=== PATIENT | male | born 1970 | race Caucasian/White ===

== ENCOUNTER 2019-09-29 06:38 | Emergency (ER) | payer BC, SELFPAY ==
[2019-09-29 06:41] VITALS: BP 129/75; PULSE 81; RESP 16; TEMP 36.3; O2SAT 98
--- NOTE | 2019-09-29 07:07 | ED.HA ---
HPI - Headache General Chief Complaint: Headache Stated Complaint: head painful to touch Time Seen by Provider: 09/29/19 06:54 Source: patient Mode of arrival: ambulatory Limitations: no limitations History of Present Illness HPI Narrative: 49 yo male who presents with c/o right sided head pain starting yesterday. Patient he noticed tenderness to palpation to right side of his scalp . He denies any trauma. He sates his pain has gradually worsened and it was worse when he was trying to lay on his right side. He is also developing nausea. He denies visual changes, focal weakness, numbness or tingling. He has taken tylenol for pain without relief. He denies fever or chills. MD elicited complaint: headache Onset (ago): day(s) Location: right and parietal Exacerbating factors: other (palpation) Relieving factors: nothing Associated symptoms: nausea Related Data Home Medications Medication Instructions Recorded Confirmed No Home Medications 06/02/19 06/02/19 Allergies Allergy/AdvReac Type Severity Reaction Status Date / Time Penicillins Allergy Unknown Hives Verified 06/02/19 13:40 Review of Systems Review of Systems: All systems reviewed & are unremarkable except as noted in HPI and below Constitutional: Constitutional: Denies chills, Denies fever(s) and Denies weakness Eyes: Eyes: Denies change in vision and Denies photophobia ENT: Denies dysphagia, Denies dizziness and Denies sore throat Gastrointestinal: Gastrointestinal: Denies abdominal pain, Reports nausea and Denies vomiting Neurologic: Denies confusion, Denies vertigo, Denies dizziness, Denies syncope, Denies focal weakness, Denies numbness and Denies weakness [facility] Past Medical History Medical History (Updated 09/29/19 @ 08:28 by Loni Murray MD) Plantar fasciitis Social History Social History (Updated 09/29/19 @ 07:12 by Loni Murray MD) Smoking status: Former smoker Tobacco type: cigarettes Exam Const: General: alert Orientation/consciousness: patient oriented x3 HENMT: Head: No palpable skull fracture present, atraumatic and scalp tenderness (right parietal, no lesions noted) Ears: external ears normal Mouth: Yes Normal oral and palatal mucosa present and Yes lip normal Eyes: Conjunctivae: conjunctivae normal Pupils: Equal, round and reactive pupils present Neck: Neck: normal visual inspection Chest: Chest palpation & inspection: normal inspection of the chest Resp: Effort & Inspection: normal respiratory effort Auscultation: clear to auscultation bilaterally Skin: General skin exam: normal color Rashes: no rashes Neuro: General: patient oriented x3 and moves all extremities Course Reevaluation(s) Reevaluation #1: Patient has not nausea and his pain has improved. I discussed with patient to watch for rash for shingles. I also discussed to follow up with PCP. I Do not believe Imaging is needed at this time. Date: 09/29/19 Time: 08:25 Vital Signs Vital signs: Vital Signs Temperature 97.4 F L 09/29/19 06:41 Pulse Rate 81 09/29/19 06:41 Respiratory Rate 16 09/29/19 06:41 Blood Pressure 129/75 09/29/19 06:41 Pulse Oximetry 98 09/29/19 06:41 Temperature 97.4 F L 09/29/19 06:41 Pulse Rate 81 09/29/19 06:41 Respiratory Rate 16 09/29/19 06:41 Blood Pressure 129/75 09/29/19 06:41 Pulse Oximetry 98 09/29/19 06:41 Discharge Plan Discharge Clinical Impression: Scalp pain Patient Disposition: Home, Self-Care Condition: Stable Instructions: Antibiotic Form, Acute Headache (ED) Additional Instructions: Today you were evaluated for pain in your scalp. This is likely due to inflammation to your scalp or nerve. Take NSAIDs such as aleve or ibuprofen for your pain. Follow up with your primary care physician. Also watch for rash developed as shingles can cause pain before you see the rash. Prescriptions: No Action No Home Medications
[2019-09-29] MEDS: ONDANSETRON HCL ODT 4 MG TABLET PO (07:19)
[2019-09-29] MEDS: KETOROLAC (*BKC) 60 MG/2 ML VIAL IM (07:21)
--- NOTE | 2019-09-29 07:21 | PC.NURSE ---
Bedside report given to FERNANDO Rizvi.
== END 2019-09-29 08:40 | disposition home or self-care (01) ==
PROVIDERS: Emergency Provider General Practice; PCP Family Medicine
DX: R51 Headache (principal); Z87.891 Personal history of nicotine dependence
CPT/HCPCS: 96372; 99283; A9270; J1885

== ENCOUNTER → 2019-10-06 08:41 | Outpatient (CLI) | payer BC, SELFPAY ==
--- NOTE | ~2019-10-06 | MR_ITS ---
EXAMINATION: MR brain/brain stem wo con EXAM DATE: 10/06/2019 09:34 INDICATION: Right-sided headache, tingling, numbness. TECHNIQUE: Magnetic resonance imaging (MRI) of the brain/brain stem obtained without contrast. Sagitt al T1, axial diffusion, gradient echo (T2*), T1, T2, FLAIR sequences obtained. There is no prior st udy for comparison. FINDINGS: There are no areas of restricted diffusion to suggest acute infarction. There is no acute hemorrhage seen on the T2*, a hemosiderin sensitive sequence. No intraparenchymal brain mass. The ve ntricles are normal in size. There are no extra-axial collections. Flow voids are seen in the cereb ral arteries on the T2-weighted sequences consistent with their expected patency. The orbits are unr emarkable. Soft tissue is unremarkable. IMPRESSION: Normal brain MRI examination. Reviewed, dictated and finalized at location A.
== END ==
PROVIDERS: PCP Family Medicine; Visit Provider Family Medicine
DX: R51 Headache (principal)
CPT/HCPCS: 70551

== ENCOUNTER → 2020-05-02 09:18 | Outpatient (CLI) | payer BC, SELFPAY ==
--- NOTE | ~2020-05-02 | XR_ITS ---
EXAMINATION: XR chest 2V DATE: 05/02/2020 09:34 INDICATION: Productive cough TECHNIQUE: Frontal and lateral views of the chest are obtained COMPARISON: 06/02/2019 FINDINGS: The lungs are free of acute opacities. There is no pleural effusion or pneumothorax. The ca rdiomediastinal silhouette is normal. The visualized bones and soft tissues are unremarkable. IMPRESSION: 1. No acute cardiopulmonary abnormality. Reviewed, dictated and finalized at location A.
== END ==
LOC: EXPCRAD 09:20
PROVIDERS: PCP Family Medicine; Visit Provider Family Medicine
DX: R05 Cough (principal)
CPT/HCPCS: 71046

== ENCOUNTER 2020-05-02 12:14 | Outpatient (NON) | payer BC, SELFPAY ==
[2020-05-02 21:13] LABS: SARS-CoV-2 RNA PCR Negative
== END 2020-05-02 12:15 ==
PROVIDERS: PCP Family Medicine; Visit Provider Family Medicine
DX: Z20.828 Contact with and (suspected) exposure to other viral communicable diseases (principal)
CPT/HCPCS: 87635; C9803; U0003

== ENCOUNTER 2020-05-28 15:13 | Emergency (ER) | payer OTHER, BC, SELFPAY ==
--- NOTE | ~2020-05-28 | XR_ITS ---
EXAMINATION: XR elbow LT min 3V DATE: 05/28/2020 16:23 INDICATION: Palpable pop at the left elbow when pulling a heavy object TECHNIQUE: Anteroposterior, two oblique and lateral views of the left elbow were obtained. COMPARISON: None. FINDINGS: Alignment is normal. No fracture or joint effusion. Tiny marginal osteophytes in all 3 compartments o f the elbow with mild nonuniform joint space narrowing at the ulnotrochlear and proximal radioulnar a rticulations. There is prominent bulging of the biceps brachii muscle with loss of the normally more tapered distal margin which in the setting of the provided clinical history raises concern for biceps brachii avulsion with proximal retraction. IMPRESSION: 1. Prominent bulging of the biceps brachii muscle with loss of the normally more tapered distal quincy n which in the setting of the provided clinical history raises concern for biceps brachii avulsion wi th proximal retraction. Could consider MRI for further evaluation as clinically indicated. 2. Mild osteoarthritis at the left elbow. No acute osseous abnormality. Reviewed, dictated and finalized at location A. FACTURING SCHEDULER IMPRESSION: 1. Prominent bulging of the biceps brachii muscle with loss of the normally mor e tapered distal margin which in the setting of the provided clinical history r aises concern for biceps brachii avulsion with proximal retraction. Could consi timothy MRI for further evaluation as clinically indicated. 2. Mild osteoarthritis at the left elbow. No acute osseous abnormality.
[2020-05-28 15:43] VITALS: BP 162/86; PULSE 81; RESP 18; TEMP 37.2; O2SAT 99
[2020-05-28 19:00] VITALS: BP 146/95; PULSE 72; RESP 15; O2SAT 97
[2020-05-28] MEDS: HYDROcodone/acetaminophen (*CRX) 5-325 MG TABLET 1 TAB PO (20:04)
--- NOTE | 2020-05-28 20:34 | ED.UPPEXIN ---
HPI - Extremity Injury (Upper) General Chief Complaint: Extremity Injury, Upper Stated Complaint: left elbow injury Time Seen by Provider: 05/28/20 19:13 Source: patient Mode of arrival: ambulatory Limitations: no limitations History of Present Illness HPI narrative: This is a 49 year old male that presents to the ER for left elbow pain after an injury today. Reports he was pulling a heavy metal box used for concrete. Reports he felt a pop in the posterior elbow. Reports pain to the elbow in the area. Denies decreased ROM or numbness. Related Data Allergies Allergy/AdvReac Type Severity Reaction Status Date / Time Penicillins Allergy Unknown Hives Verified 06/02/19 13:40 Review of Systems Review of Systems: Narrative: CONSTITUTIONAL: Denies fever MUSCULOSKELETAL: Reports joint pain, and myalgia. NEUROLOGIC: Denies numbness, or weakness. All systems reviewed & are unremarkable except as noted in HPI and below PMFSH Past Medical History Medical History (Updated 05/28/20 @ 20:35 by Samantha Damian PA-C) Plantar fasciitis Social History Social History (Updated 09/29/19 @ 07:12 by Loni Murray MD) Smoking status: Former smoker Tobacco type: cigarettes Gender identity (if verbalized by the patient): Male Exam Narrative: Exam Narrative: GENERAL: Well-appearing, well-nourished, and in no acute distress. HEAD: Normocephalic, atraumatic. EYES: EOMI. EXTREMITIES: Normal range of motion. No edema or obvious deformity. Pain with palpation of the triceps tendon just proximal to the elbow. Pain with extension at the elbow. Normal sensation. Normal radial pulses SKIN: Warm, dry, no rash. NEURO: No focal deficits. Alert and oriented x3. PSYCH: Normal mood and affect Course Vital Signs Vital signs: Vital Signs Temperature 98.9 F 05/28/20 15:43 Pulse Rate 81 05/28/20 15:43 Respiratory Rate 18 05/28/20 15:43 Blood Pressure 162/86 H 05/28/20 15:43 Pulse Oximetry 99 05/28/20 15:43 Temperature 98.9 F 05/28/20 15:43 Pulse Rate 72 05/28/20 19:00 Respiratory Rate 15 05/28/20 19:00 Blood Pressure 146/95 H 05/28/20 19:00 Pulse Oximetry 97 05/28/20 19:00 MDM - Extremity Injury (Upper) MDM Narrative Medical decision making narrative: Patient presents the emergency department for left posterior elbow pain after an injury today. Left elbow x-ray shows possible biceps brachii avulsion with proximal retraction. No osseous abnormalities noted. Patient placed in a sling and will follow up with orthopedics. Spoke with Dr. Allison about patient work-up. Patient was given warnings to return to the ER Imaging Data Radiologist's impression: ITS Impressions Elbow X-Ray 05/28/20 16:25 IMPRESSION: 1. Prominent bulging of the biceps brachii muscle with loss of the normally more tapered distal margin which in the setting of the provided clinical history raises concern for biceps brachii avulsion with proximal retraction. Could consider MRI for further evaluation as clinically indicated. 2. Mild osteoarthritis at the left elbow. No acute osseous abnormality. Critical Care Time Critical Care Time Critical Care Time: No Discharge Plan Discharge Clinical Impression: Muscle strain of left upper arm Qualifiers: Encounter type: initial encounter Qualified Code(s): S46.912A - Strain of unspecified muscle, fascia and tendon at shoulder and upper arm level, left arm, initial encounter Patient Disposition: Home, Self-Care Condition: Stable Instructions: Muscle Strain (ED) Additional Instructions: Return to the ER if you experience redness and swelling of your arm, weakness, numbness, or any other symptoms that are concerning to you Rest, use ice/heat, take anti-inflammatories (Aleve, Ibuprofen, Naproxen, etc) or Tylenol as needed for pain as well as muscle relaxer (Flexeril) as needed for pain. Muscle relaxers can make you drowsy, do not drive if you take this Follow up wi
[2020-05-28 20:45] VITALS: BP 141/93; PULSE 69; RESP 19; O2SAT 99
== END 2020-05-28 20:45 | disposition home or self-care (01) ==
PROVIDERS: Emergency Provider Emergency Medicine; PCP Family Medicine
DX: S46.912A Strain of unspecified muscle, fascia and tendon at shoulder and upper arm level, left arm, initial encounter (principal); X50.0XXA Overexertion from strenuous movement or load, initial encounter
CPT/HCPCS: 73080; 99283; A4565; A9270

== ENCOUNTER 2021-08-02 09:11 | Emergency (ER) | payer BC, SELFPAY ==
--- NOTE | 2021-08-02 09:19 | ED.BACK ---
HPI - Back Pain/Injury General Chief Complaint: Back Pain/Injury Stated Complaint: lower back pain Time Seen by Provider: 08/02/21 09:19 Source: patient and RN notes reviewed Mode of arrival: ambulatory Limitations: no limitations History of Present Illness HPI Narrative: 51-year-old male presents with concern for low back pain. Reports she has been having the pain for over a week. Reports a history of problems with low back pain. He reports he was out of town and his daughter's wedding last weekend and a prescription was called in for him for steroids and Flexeril. Reports he took those to get through the weekend, and finished both prescriptions. Reports pain eased but was not relieved. Reports over the last several days he had worsening pain. Reports he can find a position of comfort, but with certain movements he has sharp pain in the left low back. He reports the pain radiates to left buttock. He also reports today he began having mild ache in his right testicle. He reports urine frequency. He denies loss of bladder function or loss of bowel function. He denies burning with urination. He denies testicular tenderness, redness, swelling, severe pain. He reports he occasionally gets testicular aching when he feels sick. He denies weakness to any extremity MD elicited complaint: back pain Related Data Allergies Allergy/AdvReac Type Severity Reaction Status Date / Time Penicillins Allergy Unknown Hives Verified 08/02/21 09:46 Review of Systems Review of Systems: CONSTITUTIONAL: Denies malaise, chills, sweats, or fever. CARDIOVASCULAR: Denies chest pain, palpitations, or edema. RESPIRATORY: Denies cough or dyspnea. GASTROINTESTINAL: Denies abdominal pain, nausea, vomiting, diarrhea, loss of bowel function GENITOURINARY: Denies dysuria, hematuria, frequency, loss of bladder function. Reports right testicular aching SKIN: Denies rash or itching. MUSCULOSKELETAL: Reports left low back pain radiating into the buttock. NEUROLOGIC: Denies numbness, weakness, or headache. All systems reviewed & are unremarkable except as noted in HPI and below PMFSH Past Medical History Medical History (Updated 08/02/21 @ 10:08 by Leslie Arizmendi NP) Plantar fasciitis Social History Social History (Updated 09/29/19 @ 07:12 by Loni Murray MD) Smoking status: Former smoker Tobacco type: cigarettes Gender identity (if verbalized by the patient): Male Comments At time of signature, agree with nursing past medical, surgical, social and family history. There is no relevant family history pertinent to the presenting complaint Exam Narrative: GENERAL: Well-appearing, well-nourished, and in no acute distress. HEAD: Normocephalic, atraumatic. EYES: PERRLA and EOMI. NECK: Supple. No lymphadenopathy. CHEST: Clear to auscultation. No respiratory distress. HEART: Regular rate and rhythm. Distal pulses palpable and equal, cap refill <3 seconds ABDOMEN: Soft, nontender, nondistended, normal active bowel sounds, no palpable or pulsatile masses. No CVA tenderness MUSCULOSKELETAL: Normal range of motion and strength in all extremities; 5/5 strength with hip flexion and extension, dorsiflexion and extension, knee flexion and extension, plantar flexion and extension. Normal sensation in dermatomal distributions with sensitivity to light touch and pain. No midline back tenderness to palpation. No paraspinal tenderness. Transfers from lying to sitting to standing. SKIN: Warm, dry, no rash. No ecchymosis, erythema, open wounds to back. NEURO: No focal deficits. Alert and oriented x3. Reflexes intact. Normal gait. PSYCH: Normal mood and affect Course Course Emergency Course: Discussed with patient importance of follow-up with primary care provider and reasons to go to the emergency room if symptoms worsen Patient is aware of diagnosis, understands and agrees to treatment plan. Anticipatory guidance given. Patient agrees to follow-up as directed and
[2021-08-02 09:30] VITALS: BP 129/80; PULSE 95; RESP 18; TEMP 36.9; O2SAT 98
== END 2021-08-02 10:20 | disposition home or self-care (01) ==
PROVIDERS: Emergency Provider Nurse Practitioner; PCP Registered Nurse
DX: M54.50 Low back pain, unspecified (principal); N50.811 Right testicular pain; Z87.891 Personal history of nicotine dependence
CPT/HCPCS: 81003; 99213; G0463

== ENCOUNTER 2021-11-19 14:43 | Emergency (ER) | payer BC, SELFPAY ==
[2021-11-19 14:50] VITALS: BP 126/86; PULSE 92; RESP 16; TEMP 36.9; O2SAT 99
--- NOTE | 2021-11-19 14:58 | ED.EAR ---
HPI - Ear Problem General Chief complaint: Ear Stated complaint: ear pain Time Seen by Provider: 11/19/21 14:58 Source: patient Mode of arrival: ambulatory Limitations: no limitations History of Present Illness HPI Narrative: 51-year-old male presents with right ear pain starting yesterday. Reports allergy symptoms for approximately 1 month. States that right ear has felt clogged for several weeks. Last week he used an irrigation kit from [employer] to clean out ear. Did not have any pain at that time. Denies fever chills. Normal hearing. No dizziness. All systems reviewed and negative except as noted above. Related Data Home Medications Medication Instructions Recorded Confirmed No Home Medications 11/19/21 11/19/21 Allergies Allergy/AdvReac Type Severity Reaction Status Date / Time Penicillins Allergy Unknown Hives Verified 11/19/21 14:49 Review of Systems Review of Systems: CONSTITUTIONAL: Denies fever, chills, or sweats. EYES: Denies visual changes, redness, or discharge. ENT: Denies rhinorrhea, congestion, sore throat. Reports right ear pain. CARDIOVASCULAR: Denies chest pain, palpitations, or edema. RESPIRATORY: Denies cough or dyspnea. GASTROINTESTINAL: Denies abdominal pain, nausea, vomiting, or diarrhea. GENITOURINARY: Denies dysuria or hematuria. SKIN: Denies rash or itching. MUSCULOSKELETAL: Denies back pain, joint pain, or myalgia. NEUROLOGIC: Denies headache, numbness, or weakness. PSYCHIATRIC: Denies anxiety or depression. All other systems reviewed are negative, except as documented in HPI. PMFSH Past Medical History Medical History (Updated 11/19/21 @ 15:05 by Meghan Mccarthy NP) Plantar fasciitis Social History Social History (Updated 09/29/19 @ 07:12 by Loni Murray MD) Smoking status: Former smoker Tobacco type: cigarettes Gender identity (if verbalized by the patient): Male Comments At time of signature, agree with nursing past medical, surgical, social and family history. There is no relevant family history pertinent to the presenting complaint. Exam Narrative: GENERAL: This is a well-nourished, well-developed patient, in no apparent distress. HEAD: normocephalic, atraumatic. EYES: PERRL. Sclera clear/white. Vision is grossly intact. EARS: External ears normal. Erythema swelling and drainage to right ear canal. Erythema and fluid, retracted TMs bilaterally. No perforation. NOSE: External nose normal NECK: Neck supple, non-tender without lymphadenopathy, masses or thyromegaly. CARDIOVASCULAR: Regular rate and rhythm without murmurs, gallops, or rubs. RESPIRATORY: Clear to auscultation. Breath sounds equal bilaterally. No wheezes, rales, or rhonchi. SKIN: warm, Dry, intact with no suspicious lesions or rash, good texture and turgor. NEURO: awake, alert, and oriented to person, place and time. There were no obvious focal neurologic abnormalities. EXTREMITIES: Normal range of motion to all extremities. Course Course Level of Care: Express Care Visit Vital Signs Vital signs: Vital Signs Temperature 36.9 C 11/19/21 14:50 Pulse Rate 92 11/19/21 14:50 Respiratory Rate 16 11/19/21 14:50 Blood Pressure 126/86 11/19/21 14:50 Pulse Oximetry 99 11/19/21 14:50 Temperature 36.9 C 11/19/21 14:50 Pulse Rate 92 11/19/21 14:50 Respiratory Rate 16 11/19/21 14:50 Blood Pressure 126/86 11/19/21 14:50 Pulse Oximetry 99 11/19/21 14:50 Reviewed Medical Decision Making MDM Narrative Medical decision making narrative: Patient is aware of diagnosis, understands and agrees to treatment plan. Anticipatory guidance given. Patient agrees to follow-up as directed and is aware of reasons to seek care at the emergency department. Portions of this record may have been created with voice recognition software Vital Signs Vital Signs: Vital Signs Temperature 36.9 C 11/19/21 14:50 Pulse Rate 92 11/19/21 14:50 Respiratory Rate 16
== END 2021-11-19 15:09 | disposition home or self-care (01) ==
PROVIDERS: Emergency Provider Nurse Practitioner Family; PCP Registered Nurse
DX: H65.93 Unspecified nonsuppurative otitis media, bilateral (principal); H60.91 Unspecified otitis externa, right ear; Z87.891 Personal history of nicotine dependence
CPT/HCPCS: 99213; G0463

== ENCOUNTER 2021-12-11 14:19 | Emergency (ER) | payer BC, SELFPAY ==
--- NOTE | ~2021-12-11 | XR_ITS ---
XR foot RT min 3V 12/11/2021 14:59 Indication: Right foot pain Procedure: 3 views right hand Comparison: No prior studies for comparison. Findings: There are degenerative calcaneal enthesophytes. No acute fracture or traumatic malalignment . Lisfranc joint intact. Impression: 1: No acute bone or joint abnormality Reviewed, dictated and finalized at location A. Impression: 1: No acute bone or joint abnormality
[2021-12-11 14:26] VITALS: BP 130/84; PULSE 89; RESP 18; TEMP 36.4; O2SAT 99
--- NOTE | 2021-12-11 14:46 | ED.LOWEXIN ---
HPI - Extremity Injury (Lower) General Chief Complaint: Extremity Injury, Lower Stated Complaint: right foot pain Source: patient Mode of arrival: ambulatory Limitations: no limitations History of Present Illness HPI Narrative: 51-year-old male presented for complaint of right heel pain for 2 days. Denies known injury. He states pain is worse with ambulatory, rates it 9 out of 10. Pain is sharp and stabbing. No change to activity or shoes. Minimal pain at rest. Denies surgical history on the right leg or foot. Taking ibuprofen for pain. Denies numbness, tingling, or weakness of the lower extremity or foot. Related Data Home Medications Medication Instructions Recorded Confirmed Back Injections 12/11/21 Allergies Allergy/AdvReac Type Severity Reaction Status Date / Time Penicillins Allergy Unknown Hives Verified 11/19/21 14:49 Review of Systems Review of Systems: CONSTITUTIONAL: Denies body aches, fever, chills EYES: Denies visual changes ENT: Denies rhinorrhea, congestion CARDIOVASCULAR: Denies chest pain, palpitations, or edema. RESPIRATORY: Denies cough or dyspnea. GASTROINTESTINAL: Denies abdominal pain, nausea, vomiting, or diarrhea. SKIN: Denies rash, itching, or wounds. MUSCULOSKELETAL: Reports right heel pain. NEUROLOGIC: Denies headache, numbness, tingling, or weakness. PSYCH: Denies depression or anxiety. All systems reviewed & are unremarkable except as noted in HPI and below PMFSH Past Medical History Medical History Plantar fasciitis Social History Social History Smoking status: Former smoker Tobacco type: cigarettes Gender identity (if verbalized by the patient): Male Comments At time of signature, I have reviewed and agree with nursing past medical, surgical, social and family history unless otherwise noted. Please see nursing chart for further information. There is no relevant family history pertinent to the presenting complaint Exam Narrative: GENERAL: Well-appearing, well-nourished, and in no acute distress. HEAD: Normocephalic, atraumatic. EYES: PERRLA, conjunctivae clear NECK: Supple. CHEST: Speaks in full sentences. No respiratory distress. HEART: Regular rate and rhythm. Normal and equal peripheral pulses. EXTREMITIES: Right foot has normal strength and sensation, normal range of motion. Plantar surface of heel tender with palpation; No redness, edema or ecchymosis to heel. Small amount of bruising to posterior medial malleolus. No open wounds, skin tenting, or obvious deformity; alignment normal, pulse palpable and equal bilaterally, skin warm, dry, pink. Capillary refill less than 3 seconds. SKIN: Warm, dry, no rash. NEURO: Alert and oriented x3. PSYCH: Normal mood and affect Course Course Emergency Course: Patient is aware of diagnosis, understands and agrees to treatment plan. Anticipatory guidance given. Patient agrees to follow-up as directed and is aware of reasons to seek care at the emergency department. Portions of this record may have been created with voice recognition software Level of Care: Express Care Visit Vital Signs Vital signs: Vital Signs Temperature 97.6 F 12/11/21 14:26 Pulse Rate 89 12/11/21 14:26 Respiratory Rate 18 12/11/21 14:26 Blood Pressure 130/84 12/11/21 14:26 Pulse Oximetry 99 12/11/21 14:26 Oxygen Delivery Room Air 12/11/21 14:26 Temperature 97.6 F 12/11/21 14:26 Pulse Rate 89 12/11/21 14:26 Respiratory Rate 18 12/11/21 14:26 Blood Pressure 130/84 12/11/21 14:26 Pulse Oximetry 99 12/11/21 14:26 Oxygen Delivery Room Air 12/11/21 14:26 Reviewed MDM - Extremity Injury (Lower) MDM Narrative Medical decision making narrative: Xray reviewed with pt, advised supportive treatment for heel pain and f/u with pcp. v/u. Differential Diagnosis Differential diagnosis:
== END 2021-12-11 15:19 | disposition home or self-care (01) ==
PROVIDERS: Emergency Provider Nurse Practitioner Family; PCP Registered Nurse
DX: M79.671 Pain in right foot (principal); Z87.891 Personal history of nicotine dependence
CPT/HCPCS: 73630; 99213; G0463

== ENCOUNTER 2022-05-14 11:05 | Emergency (ER) | payer BC, SELFPAY ==
[2022-05-14 11:20] VITALS: BP 136/82; PULSE 100; RESP 16; TEMP 38.6; O2SAT 98
--- NOTE | 2022-05-14 11:54 | ED.URI ---
HPI - URI/Sore Throat General Chief Complaint: Upper Respiratory Infection Stated Complaint: cold sx Time Seen by Provider: 05/14/22 11:54 Source: patient, RN notes reviewed and old records reviewed Mode of arrival: ambulatory Limitations: no limitations History of Present Illness HPI Narrative: 51-year-old male presents to the [facility] with fever, body aches and chills since Wednesday or Wednesday. Reports that and daughters are both flu a positive. Has tried taking Tylenol and flu relief. Denies any chest pain or abdominal pain. MD elicited complaint: fever and cough Related Data Home Medications Medication Instructions Recorded Confirmed Back Injections 12/11/21 Allergies Allergy/AdvReac Type Severity Reaction Status Date / Time Penicillins Allergy Unknown Hives Verified 11/19/21 14:49 Review of Systems Review of Systems: All systems reviewed & are unremarkable except as noted in HPI and below Constitutional: Constitutional: Reports as per HPI, Reports chills, Reports fatigue and Reports fever(s) Eyes: Eyes: Reports no additional eye complaints ENT: Reports as per HPI Cardiovascular: Cardiovascular: Reports no additional cardiovascular complaints Respiratory: Respiratory: Reports no additional respiratory complaints Gastrointestinal: Gastrointestinal: Reports no additional gastrointestinal complaints Musculoskeletal: Musculoskeletal: Reports no additional musculoskeletal complaints Integumentary/Breasts: Skin/Breast: Reports system reviewed and no additional complaints, except as docu Neurologic: Reports system reviewed and no additional complaints, except as documented Psychiatric: Psychiatric: Reports no additional psychiatric complaints Allergic/Immunologic: Allergic/Immunologic: Reports no additional allergic/immunologic complaints PMFSH Past Medical History Medical History Plantar fasciitis Social History Social History Smoking status: Former smoker Tobacco type: cigarettes Gender identity (if verbalized by the patient): Male Comments At the time of my signature, I reviewed and agree with the nursing past medical, surgical, social, and family history. There is no relevant family history pertinent to the patient complaint. Exam Const: General: no acute distress, alert, ill appearing acutely (mild) and well nourished Nutritional Appearance: well nourished and obese Orientation/consciousness: patient oriented x3 Limitations: no limitations HENMT: Head: normal to inspection Ears: external ears normal, TM's normal bilaterally and EAC's normal Face/Nose/Sinus: Normal external nose present and Normal nares present Face and sinus: normal facial exam Mouth: Yes Normal oral and palatal mucosa present, Yes lip normal and Yes moist mucous membranes Throat: posterior oropharynx normal and uvula midline Eyes: General: appearance normal, both eyes and all related structures Conjunctivae: conjunctivae normal Pupils: Equal, round and reactive pupils present Neck: Neck: normal visual inspection, no lymphadenopathy and no meningeal signs Chest: Chest palpation & inspection: normal inspection of the chest Resp: Effort & Inspection: normal respiratory effort and no use of accessory muscles Auscultation: clear to auscultation bilaterally, no crackles, no rales, no rhonchi and no wheezes Cardio: Rate: regular rate Rhythm: regular rhythm Skin: General skin exam: normal color Rashes: no rashes Wounds: no wounds Neuro: General: patient oriented x3, moves all extremities, no meningeal signs and no focal motor deficits Cranial nerves: Yes Equal, round and reactive pupils present Speech: normal speech Gait exam (Neuro): Normal gait present Extrem: General: normal to inspection, full ROM and capillary refill normal Psych: Appearance: grossly normal and well kempt Mental Status: me
--- NOTE | 2022-05-14 12:18 | PC.NURSE ---
no strep cx sent per clerical production worker order.
== END 2022-05-14 12:22 | disposition home or self-care (01) ==
PROVIDERS: Emergency Provider Nurse Practitioner
DX: J10.1 Influenza due to other identified influenza virus with other respiratory manifestations (principal); Z20.822 Contact with and (suspected) exposure to COVID-19; Z87.891 Personal history of nicotine dependence
CPT/HCPCS: 87426; 87804; 87880; 99213; C9803; G0463

== ENCOUNTER 2023-02-15 08:37 | Emergency (ER) | payer BC, SELFPAY ==
--- NOTE | ~2023-02-15 | XR_ITS ---
EXAMINATION: XR chest 2V DATE: 02/15/2023 09:20 INDICATION: Cough. Fever. Earache. TECHNIQUE: Frontal and lateral views of the chest were obtained. COMPARISON: Chest 2 views 05/02/2020 FINDINGS: The chest demonstrates clear lungs without pneumonia, pleural effusion, or pneumothorax. Th e heart size is normal. IMPRESSION: 1. No acute cardiopulmonary disease. Reviewed, dictated and finalized at location A.
[2023-02-15 08:40] VITALS: BP 136/89; PULSE 78; RESP 16; TEMP 36.8; O2SAT 99
--- NOTE | 2023-02-15 09:19 | ED.EAR ---
HPI - Ear Problem General Chief complaint: Ear Stated complaint: R EAR PAIN,DECREASED HEARING Time Seen by Provider: 02/15/23 09:00 History of Present Illness HPI Narrative: 52-year-old male reports for evaluation for right ear pain x3 days. Patient states the pain started 3 days ago with decreased hearing and he went to urgent care 2 days ago. States he was diagnosed with otitis externa and otitis media and was started on cefdinir given his penicillin allergy and Ciprodex otic drops. Patient states yesterday he felt as if the pain had worsened and in his ear became more clogged. He states he usually gets ear infections about once a year at times has to get a wick placed. Reports he has seen an ENT in the past but cannot remember his name. He denies headache or vision changes, neck pain, nausea or vomiting, shortness of breath. He does state he had a 101 fever yesterday that has since self resolved. He also reports a mild productive cough for the past few days and woke up with a scratchy throat this morning. Related Data Home Medications Medication Instructions Recorded Confirmed Back Injections 12/11/21 cefdinir 300 mg capsule mg 02/15/23 ciprofloxacin 0.3 %-dexamethasone drp 02/15/23 0.1 % ear drops,suspension Allergies Allergy/AdvReac Type Severity Reaction Status Date / Time Penicillins Allergy Unknown Hives Verified 02/15/23 08:49 Review of Systems Review of Systems: CONSTITUTIONAL: Denies fever, chills EYES: Denies visual changes, redness, or discharge. ENT: See HPI CARDIOVASCULAR: Denies chest pain, palpitations, or edema. RESPIRATORY: See HPI GASTROINTESTINAL: Denies abdominal pain, nausea, vomiting, or diarrhea. GENITOURINARY: Denies dysuria or hematuria. SKIN: Denies rash or itching. MUSCULOSKELETAL: Denies back pain, joint pain, or myalgia. NEUROLOGIC: Denies headache, numbness, dizziness, or weakness. PSYCHIATRIC: Denies anxiety or depression. [facility] Past Medical History Medical History Plantar fasciitis Social History Social History Smoking status: Former smoker Tobacco type: cigarettes Gender identity (if verbalized by the patient): Male Exam Narrative: GENERAL: Well-appearing, in no acute distress. Patient resting comfortably in exam bed. He is pleasant and conversational. HEAD: Normocephalic EYES: PERRLA ENT: Nares clear. Mucous membranes moist. Mild erythema to posterior pharynx. Uvula midline. No tonsillar hypertrophy or exudates. Left TM is rodarte and nonbulging, normal canal. Right canal erythematous with a small amount of white exudates occluding the canal, TM not visualized. No active drainage, no significant erythema of external canal. Pain with movement of right auricle. No mastoid tenderness. NECK: Supple. CHEST: No respiratory distress. Clear to auscultation, no adventitious breath sounds. HEART: Regular rate and rhythm. No murmur heard. Normal peripheral pulses. EXTREMITIES: Normal range of motion. No edema. SKIN: Warm, dry, no rash. NEURO: No focal deficits. Alert and oriented x3. PSYCH: Normal mood and affect. Course Vital Signs Vital signs: Vital Signs Temperature 98.3 F 02/15/23 08:40 Pulse Rate 78 02/15/23 08:40 Respiratory Rate 16 02/15/23 08:40 Blood Pressure 136/89 02/15/23 08:40 Pulse Oximetry 99 02/15/23 08:40 Oxygen Delivery Room Air 02/15/23 08:40 Temperature 98.3 F 02/15/23 08:40 Pulse Rate 68 02/15/23 11:15 Respiratory Rate 18 02/15/23 11:15 Blood Pressure 135/85 02/15/23 11:15 Pulse Oximetry 98 02/15/23 11:15 Oxygen Delivery Room Air 02/15/23 08:40 Medical Decision Making MDM Narrative Medical decision making narrative: 52-year-old male reports for evaluation for right ear pain x3 days. He was evaluated by urgent care 2 days ago and was started on cefdinir and
[2023-02-15 10:27] LABS: Strep Group A RT-PCR NOT DETECTED (Negative)
[2023-02-15 10:39] LABS: Influenza A QL RT-PCR Negative (Negative); Influenza B QL RT-PCR Negative (Negative); SARS-CoV-2 RNA PCR Negative (Negative)
[2023-02-15] MEDS: HYDROcodone/acetaminophen (*CRX) 5-325 MG TABLET 1 TAB PO (11:13)
[2023-02-15 11:15] VITALS: BP 135/85; PULSE 68; RESP 18; O2SAT 98
[2023-02-15] MEDS: OFLOXACIN 0.3% OPHTH SOLN 5 ML BTL 3 DROP RIGHT EAR (11:20)
== END 2023-02-15 12:14 | disposition home or self-care (01) ==
PROVIDERS: Emergency Provider Physician Assistant; PCP Registered Nurse
DX: H60.501 Unspecified acute noninfective otitis externa, right ear (principal); J00 Acute nasopharyngitis [common cold]; Z20.822 Contact with and (suspected) exposure to COVID-19; Z87.891 Personal history of nicotine dependence
CPT/HCPCS: 71046; 87636; 87651; 99283; A9270

== ENCOUNTER 2023-10-28 01:33 | Day surgery (SDC) | payer BC, SELFPAY ==
[2023-10-20 14:04] VITALS: BMI 34.6
--- NOTE | 2023-10-20 14:07 | PC.NURSE ---
Report to the Outpatient Waiting Room, entrance under the green pavilion located off [facility], at time 0630 on date 10/28/23. Planned Procedure Time: 0830. Time changes happen often and if your time is changed the preop area will call you the afternoon before. - You and your visitor will be asked to self-screen and do not enter if you have any COVID symptoms. - A mask is optional within the hospital at this time. Patients may have clear liquids (water, carbonated beverages, clear teas, apple juice) until 3 hours prior to surgery with a maximum of 20 ounces. - No food from midnight until time of surgery Take the following medications with a SIP of water the morning of surgery: N/A DO NOT STOP ANY OF YOUR OTHER PRESCRIPTION MEDICATIONS PRIOR TO SURGERY ?EXCEPT THE FOLLOWING Medications to discontinue per physician: N/A Date to take last dose: N/A Please no make-up, nail arabic, hairspray, perfume, deodorant, or body powder the day of surgery. No jewelry (including any body piercings) or valuables the day of surgery, leave them at home. Please take a shower or bath the night before, or the morning of, surgery with an antibacterial soap. Wear comfortable, loose fitting clothing. - Jewelry must be removed prior to entering the operating room. Rings and piercings that are not removed may be cut off. - The hospital will not accept responsibility for valuables. - Please leave all valuables, including medications, at home the day of surgery. If you are going home after surgery, a licensed hazardous materials tanker driver must drive you home. - NO public transportation without another adult if you receive anesthesia. - We recommend that an adult stay with you for 24 hours following discharge. - We also recommend that you do not drive, make important decision, drink alcoholic beverages, or take any drugs that were not prescribed by your health care provider for at least 24 hours after your discharge time. Follow any additional instructions given to you from your surgeon. If you or anyone in your household have experienced Covid symptoms in the past week, please notify your surgeon or the nurse liaison at the phone number below for possible testing. Telephone instructions given to PT Anita PARSONS and asked if any additional questions and then verbalized understanding. Patient advised to call surgeon office or pre surgery nurse liaison [phone] if any additional questions.
--- NOTE | 2023-10-28 06:28 | WPDHPUPDATE1 ---
History and Physical Update Update Date/Time: 10/28/23 06:28 History and Physical has been reviewed, including an updated exam of the patient. There are NO changes in the patient's condition. Risks, benefits, and alternatives have been discussed and questions answered. Patient agrees to proceed with procedure.
[2023-10-28 07:35] VITALS: BP 125/73; PULSE 67; RESP 14; TEMP 36.6; O2SAT 98
[2023-10-28] MEDS: LACTATED RINGERS 1,000 ML 30 ML IV CONT ×2 (07:39→08:53)
--- NOTE | 2023-10-28 07:57 | WPDANESEPPF ---
Anes - Initial Pre Proc Eval Procedure: Operation Date: 10/28/23 08:30 Proposed Procedures p Left Epididymectomy - Sagar Betancur MD Date/Time: 10/28/23 07:57 Surgeon: Sagar Betancur MD Pre Op Diagnosis: Chr Epididymitis Patient Data Age: 53 Gender: M Height: 1.83 m Weight: 120.1 kg Last Vital Signs Temp 98 F 10/28/23 07:35 Pulse 67 10/28/23 07:35 Resp 14 10/28/23 07:35 BP 125/73 10/28/23 07:35 Pulse Ox 98 10/28/23 07:35 O2 Del Method Room Air 10/28/23 07:35 Allergies Allergy/AdvReac Type Severity Reaction Status Date / Time Penicillins Allergy Unknown Hives Verified 10/28/23 07:39 Sulfa (Sulfonamide Allergy Rash Verified 10/28/23 07:39 Antibiotics) Home Medications Medication Instructions Recorded Confirmed Type No Home Medications 10/20/23 10/20/23 History Patient hx anesthesia problems: none Family hx anesthesia problems: none Results Review: All pre-operative results and documents have been reviewed as part of the pre-operative evaluation. [facility] Past Medical History Medical History Plantar fasciitis Social History Social History Smoking packs per day: 0.5 Smoking cigarettes per day: 10.0 Years smoked: 7 Smoking pack-years: 3.50 Smoking status: Former smoker Tobacco type: cigarettes Smoking end date: 07/19/21 Alcohol intake: current Drinks per week: 3 Substance use: never Substance use type: does not use Living arrangements: with family Gender identity (if verbalized by the patient): Male Spiritual care concerns: No Anes - Eval Final PreProcedure Day of Procedure 10/28/23 07:57 Patient weight: obese Heart: regular rate and rhythm Lungs: clear to auscultation Airway: Mallampati scale class III Neurological: alert and oriented Last oral intake: >/= 8 hours ASA classification: II Emergent: no Anesthetic plan: proceed Anesthesia type and monitoring: general and standard monitoring Results Review: All pre-operative results and documents have been reviewed as part of the pre-operative evaluation. 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 Informed Consent: The patient's anesthetic plan and its attendant risks and benefits were discussed with the patient/family/POA. Questions were solicited and answers provided to the satisfaction of the patient/family/POA.
[2023-10-28] MEDS: ceFAZolin 3 GM/D5W 100 ML 100 ML IVPB (08:13)
--- NOTE | 2023-10-28 08:51 | W.PM.PROC2 ---
Procedure Note - Detailed Date of Procedure 10/28/23 Pre-op Diagnosis Chronic Left Epididymitis Post-op Diagnosis Same Procedure Performed Left epididymectomy Surgeon Sagar Betancur MD Anesthesia General Findings Indurated epididymis predominantly in globus major Description of Procedure Patient is brought to the operative suite was prepped and draped in routine sterile fashion while in the supine position after the uneventful induction of a general anesthetic. Midline incision is made in the median raphe and the scrotum and dissection is carried into the left tunica vaginalis. Left testicle is delivered and carefully inspected. Appears normal. The left epididymis is notably indurated predominantly in the globus major. The entire epididymis is removed using predominantly electrocautery dissection. Hemostasis is obtained with electrocautery. The left testicle is returned to an orthotopic position. Left scrotal irrigation is undertaken with sterile saline. Dartos muscle was closed with a running 4-0 chromic and skin is likewise closed with a running 4-0 chromic. Blood loss was estimated at 10 cc. Pathology Yes Complications No immediate complications Condition Stable
[2023-10-28 08:53] VITALS: BP 133/90; PULSE 71; RESP 16; TEMP 36.3; O2SAT 95
[2023-10-28 09:05] VITALS: BP 126/63; PULSE 67; RESP 16; O2SAT 100
[2023-10-28 09:20] VITALS: BP 138/75; PULSE 69; RESP 14; O2SAT 99
[2023-10-28 09:30] VITALS: BP 131/84; PULSE 65; RESP 16
[2023-10-28] MEDS: oxyCODONE HCL (*CRX) 5 MG TAB IR PO (09:40)
[2023-10-28] MEDS: ONDANSETRON INJ 4 MG/2 ML VIAL IV PUSH (09:40)
[2023-10-28 10:00] VITALS: BP 122/79; PULSE 61; RESP 16
== END 2023-10-28 10:18 | disposition home or self-care (01) ==
PROVIDERS: PCP Registered Nurse; Visit Provider Urology
PROC: (CPT 54860; principal; 2023-10-28 08:30)
DX: N45.1 Epididymitis (principal); E66.9 Obesity, unspecified; Z68.35 Body mass index [BMI] 35.0-35.9, adult; Z98.890 Other specified postprocedural states; Z87.891 Personal history of nicotine dependence
CPT/HCPCS: 54860; 88304; A9270; J0690; J1100; J2405; J2704; J3010; J7120

== ENCOUNTER 2024-01-24 08:29 | Emergency (ER) | payer OTHER, SELFPAY ==
[2024-01-24 08:37] VITALS: BP 135/80; PULSE 70; RESP 16; TEMP 36.6; O2SAT 99
--- NOTE | 2024-01-24 08:44 | ED.EAR ---
HPI - Ear Problem General Chief complaint: Ear Stated complaint: left earache Time Seen by Provider: 01/24/24 08:44 Source: patient Mode of arrival: ambulatory Limitations: no limitations History of Present Illness HPI Narrative: 53-year-old male presents with complaint of left ear pain and drainage. 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 Patient at [place] all weekend for 19 of January swimming. All systems reviewed and negative except as noted above. Related Data Allergies Allergy/AdvReac Type Severity Reaction Status Date / Time Penicillins Allergy Unknown Hives Verified 01/24/24 08:42 Sulfa (Sulfonamide Allergy Rash Verified 01/24/24 08:42 Antibiotics) Review of Systems Review of Systems: CONSTITUTIONAL: Denies fever, chills, or sweats. EYES: Denies visual changes, redness, or discharge. ENT: Denies rhinorrhea, congestion, sore throat . Reports left ear pain. CARDIOVASCULAR: Denies chest pain, palpitations, or edema. RESPIRATORY: Denies cough or dyspnea. GASTROINTESTINAL: Denies abdominal pain, nausea, vomiting, or diarrhea. GENITOURINARY: Denies dysuria or hematuria. SKIN: Denies rash or itching. MUSCULOSKELETAL: Denies back pain, joint pain, or myalgia. NEUROLOGIC: Denies headache, numbness, or weakness. PSYCHIATRIC: Denies anxiety or depression. All other systems reviewed are negative, except as documented in HPI. PMFSH Past Medical History Medical History Plantar fasciitis Social History Social History Smoking packs per day: 0.5 Smoking cigarettes per day: 10.0 Years smoked: 7 Smoking pack-years: 3.50 Smoking status: Former smoker Tobacco type: cigarettes Smoking end date: 07/19/21 Alcohol intake: current Drinks per week: 3 Substance use: never Substance use type: does not use Living arrangements: with family Gender identity (if verbalized by the patient): Male Spiritual care concerns: No Comments At time of signature, agree with nursing past medical, surgical, social and family history. There is no relevant family history pertinent to the presenting complaint. Exam Narrative: GENERAL: This is a well-nourished, well-developed patient, in no apparent distress. HEAD: normocephalic, atraumatic. EYES: PERRL. Sclera clear/white. Vision is grossly intact. EARS: External ears normal, Right ear canal normal. Left ear canal is erythematous and swollen. TMs normal without perforation. Hearing grossly intact. NOSE: External nose normal with no obvious nasal discharge, nares without redness, no rhinorrhea. THROAT: Mucous membranes moist, posterior pharynx clear. NECK: Neck supple, non-tender without lymphadenopathy, masses or thyromegaly. CARDIOVASCULAR: Regular rate and rhythm without murmurs, gallops, or rubs. RESPIRATORY: Clear to auscultation. Breath sounds equal bilaterally. No wheezes, rales, or rhonchi. SKIN: warm, Dry, intact with no suspicious lesions or rash, good texture and turgor. NEURO: awake, alert, and oriented to person, place and time. There were no obvious focal neurologic abnormalities. EXTREMITIES: No joint tenderness, effusion, or edema noted. Course Course Level of Care: Express Care Visit Vital Signs Vital signs: Vital Signs Temperature 36.6 C 01/24/24 08:37 Pulse Rate 70 01/24/24 08:37 Respiratory Rate 16 01/24/24 08:37 Blood Pressure 135/80 01/24/24 08:37 Pulse Oximetry 99 01/24/24 08:37 Oxygen Delivery Room Air 01/24/24 08:37 Temperature 36.6 C 01/24/24 08:37 Pulse Rate 70 01/24/24 08:37 Respiratory Rate 16 01/24/24 08:37 Blood Pressure 135/80 01/24/24 08:37 Pulse Oximetry 99 01/24/24 08:37 Oxygen Delivery Room Air 01/24/24 08:37 Reviewed Medical Decision Making MDM Narrative Medical decision making narrative: Patient is aware of diagnosis, understands and agrees to
== END 2024-01-24 08:50 | disposition home or self-care (01) ==
PROVIDERS: Emergency Provider Nurse Practitioner Family; PCP Registered Nurse
DX: H60.332 Swimmer's ear, left ear (principal); Z87.891 Personal history of nicotine dependence
CPT/HCPCS: 99213; G0463

== ENCOUNTER 2024-04-23 13:58 | Emergency (ER) | payer OTHER, SELFPAY ==
[2024-04-23 14:11] VITALS: BP 148/92; PULSE 91; RESP 16; TEMP 36.9; O2SAT 99
[2024-04-23 14:13] VITALS: BP 148/92; PULSE 91; RESP 16; TEMP 36.9; O2SAT 99
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
== END 2024-04-23 15:15 | disposition home or self-care (01) ==
PROVIDERS: Emergency Provider Nurse Practitioner Family; PCP Registered Nurse
DX: M54.2 Cervicalgia (principal); R03.0 Elevated blood-pressure reading, without diagnosis of hypertension; Z87.891 Personal history of nicotine dependence
CPT/HCPCS: 99212; G0463

== ENCOUNTER 2024-05-15 13:56 | Emergency (ER) | payer OTHER, SELFPAY ==
--- NOTE | 2024-05-15 13:57 | ED.URI ---
HPI - URI/Sore Throat General Chief Complaint: Upper Respiratory Infection Stated Complaint: cough,chest hurts,drainage Time Seen by Provider: 05/15/24 13:57 Source: patient Mode of arrival: ambulatory Limitations: no limitations History of Present Illness HPI Narrative: Patient is a 53-year-old male who presents with 3 days of cough, congestion, chest congestion. Patient has been taking Claritin-D. Denies any fever, chills, nausea, vomiting, diarrhea. 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 Related Data Allergies Allergy/AdvReac Type Severity Reaction Status Date / Time Penicillins Allergy Intermediate Hives Verified 05/15/24 14:07 Sulfa (Sulfonamide Allergy Intermediate Rash Verified 05/15/24 14:07 Antibiotics) tramadol Allergy Unknown Other Verified 05/15/24 14:07 Review of Systems Review of Systems: All systems reviewed & are unremarkable except as noted in HPI and below Constitutional: Constitutional: Denies body ache(s), Denies chills, Denies fatigue, Denies fever(s), Denies headache(s), Denies malaise and Denies weakness Eyes: Eyes: Denies blurry vision, Denies itchy eyes and Denies loss of vision ENT: Denies otalgia, Denies headache(s), Reports nasal congestion, Denies sinus pain and Denies sore throat Cardiovascular: Cardiovascular: Denies chest pain, Denies irregular heart rhythm and Denies dyspnea Respiratory: Respiratory: Reports chest congestion, Reports cough and Denies dyspnea Gastrointestinal: Gastrointestinal: Denies abdominal pain, Denies diarrhea, Denies nausea and Denies vomiting Musculoskeletal: Musculoskeletal: Denies back pain, Denies myalgias and Denies arthralgias Integumentary/Breasts: Skin/Breast: Denies pruritus and Denies rash Neurologic: Denies headache(s), Denies loss of vision and Denies weakness Psychiatric: Psychiatric: Reports no additional psychiatric complaints Endocrine: Endocrine: Denies fatigue Allergic/Immunologic: Allergic/Immunologic: Denies itchy eyes PMFSH Past Medical History Medical History Plantar fasciitis Social History Social History Smoking packs per day: 0.5 Smoking cigarettes per day: 10.0 Years smoked: 7 Smoking pack-years: 3.50 Smoking status: Former smoker Tobacco type: cigarettes Smoking end date: 07/19/21 Alcohol intake: current Drinks per week: 3 Substance use: never Substance use type: does not use Living arrangements: with family Gender identity (if verbalized by the patient): Male Spiritual care concerns: No Comments At time of signature, agree with nursing past medical, surgical, social and family history. There is no relevant family history pertinent to the presenting complaint. Exam Const: General: cooperative, healthy appearing, comfortable, no acute distress and well nourished Nutritional Appearance: well nourished Orientation/consciousness: patient oriented x3 Limitations: no limitations HENMT: Head: normal to inspection, normocephalic and atraumatic Ears: hearing grossly normal bilaterally, external ears normal, TM's normal bilaterally, EAC's normal and no periauricular adenopathy Face/Nose/Sinus: Normal external nose present, Abnormal mucous membranes and turbinates present erythematous bilateral and diffuse, normal facial exam, sinuses nontender and face symmetric Face and sinus: normal facial exam, sinuses nontender and face symmetric Mouth: Yes Normal oral and palatal mucosa present, Yes lip normal, Yes tongue normal, Yes Normal salivary glands and ducts present, Yes oropharynx normal and Yes moist mucous membranes Teeth and gingiva: dentition normal Throat: posterior oropharynx normal, tonsils normal and uvula midline Eyes: General: appearance normal, both eyes and all related structures Alignment and Position: alignment normal and position normal Periorbital: periorbital findings normal Eyelids: eyelids normal Pupils: Equal, round and reactive pupils present Neck: Neck: normal visual inspection, full ROM, no lymphadenopathy and supple Chest: Chest palpation & inspection: normal inspection of the chest and normal palpation of entire chest wall Resp: Effort & Inspection: normal respiratory effort and able to speak in complete sentences Auscultation: clear to auscultation bilaterally, no crackles, no rales, no rhonchi and no wheezes Cardio: Rate: regular rate Rhythm: regular rhythm Heart sounds: S1 normal heart sound present and S2 normal heart sound present GI: Inspection: normal to inspection Skin: General skin exam: normal color and no rashes or lesions noted Neuro: General: patient oriented x3 and moves all extremities Cranial nerves: Yes Equal, round and reactive pupils present Speech: normal speech Gait exam (Neuro): Normal gait present Extrem: General: normal to inspection, full ROM and no edema Psych: Appearance: grossly normal and well kempt Mental Status: mental status grossly normal Speech and movement: Normal speech and movement present Affect: normal affect Attitude: cooperative Thought process: Normal thought process present Course Course Emergency Course: Patient is aware of diagnosis, understands and agrees to treatment plan. Anticipatory guidance given. Patient agrees to follow-up as directed and is aware of reasons to seek care at the emergency department. Portions of this record may have been created with voice recognition software Level of Care: Express Care Visit Vital Signs Vital signs: Reviewed MDM - URI/Sore Throat MDM Narrative Medical decision making narrative: Discharge instructions reviewed with patient, as well as provided in writing per nursing staff. The instructions also include specific and strict return/GO TO THE ER as well as f/u information. All questions have been answered, and the patient deny any further questions with discharge and discharge plan. Differential diagnosis considered: Brady virus, strep pharyngitis, allergic rhinitis, upper respiratory tract infection, sinusitis, rhinosinusitis, nasopharyngitis. viral pharyngitis, otitis media, otitis externa, otitis effusion, foreign body, cerumen impaction, viral syndrome, and influenza.? Exam findings show no acute concerns or changes; patient is non-toxic appearing and is in no distress.? Patient is appropriate for outpatient treatment and follow-up.? Medical Records Attestation: I reviewed the patient's medical records. Discharge Plan Discharge Clinical Impression: Bronchitis Patient Disposition: Home, Self-Care Condition: Stable Instructions: Acute Bronchitis (ED) Additional Instructions: Take steroids in the morning with food. Use Tessalon Perles as needed for cough. Use inhaler with spacer as needed. Other symptomatic treatments include: -Alternate Tylenol and Motrin per package directions for fever or pain. -Antihistamine medication such as Benadryl at night and Zyrtec/Claritin/Yvrose during the day can help improve symptoms. -Use Flonase twice a day for 5 days then daily to help reduce the inflammation and dry up your sinuses. -You can also use Sudafed or Mucinex. Be sure to drink plenty of water with these medications at least 8 ounces with every dose and it is important to drink 8 to 10 glasses of water per day. Water is a natural decongestant -Eat and drink things that are easy to swallow, like tea or soup, or popsicles. -Oral rinses such as: Salt water gargles and/or may use topical anesthetic (eg. Chloraseptic spray) or lozenges to relieve dryness or throat pain). -Frequent hand washing or hand journeyman pipefitter is one of the best ways to prevent spread of infection. -Using a vaporizer or humidifier at night will also help thin secretions and help with coughing up phlegm. -Follow up with primary care provider in 3-5 days if condition is not improving - For new or worsening symptoms go directly to the nearest ER Prescriptions: New prednisone 20 mg tablet 40 mg PO DAILY 5 Days Qty: 10 0RF benzonatate 100 mg capsule 100 mg PO BID PRN (Reason: cough) Qty: 14 0RF albuterol sulfate 90 mcg/actuation HFA aerosol inhaler 2 puff inhalation QID PRN (Reason: shortness of breath or wheezing) Qty: 6.7 0RF (DME) Aerochamber MV Spacer See Rx Instructions .Route Qty: 1 0RF Rx Instructions: As directed Follow-up/Referrals: Helen,NOEL Nath [Primary Care Provider] - 3 Days Stand Alone Forms: Work/School Release IP Time of Disposition: 14:36
[2024-05-15 14:15] VITALS: BP 132/75; PULSE 84; RESP 20; TEMP 36.9; O2SAT 98
== END 2024-05-15 14:40 | disposition home or self-care (01) ==
PROVIDERS: Emergency Provider Nurse Practitioner Family; PCP Registered Nurse
DX: J40 Bronchitis, not specified as acute or chronic (principal); Z87.891 Personal history of nicotine dependence
CPT/HCPCS: 99213; G0463